=== PATIENT | female | born 1985 | race Caucasian/White ===

== ENCOUNTER 2020-07-26 14:23 | Outpatient (CLI) | payer BC ==
--- NOTE | 2020-07-26 14:41 | RAD ---
EXAM: 2 views of the right hip HISTORY: Right hip pain COMPARISON: None FINDINGS: 2 views of the right hip shows no evidence of acute fracture or dislocation. No degenerativ e changes are seen. No soft tissue swelling is present. An IUD seen in the pelvis. There is partial fusion of the right L5 transverse process. IMPRESSION: No evidence of acute osseous abnormality. There is partial fusion of the right L5 transve rse process which could cause right hip pain.
== END 2020-07-26 14:24 | disposition home or self-care (01) ==
LOC: NAV RAD 14:23
PROVIDERS: ATTEND Nurse Practitioner Adult Health
DX: M25.551 Pain in right hip (principal); M43.26 Fusion of spine, lumbar region